=== PATIENT | female | born 1980 | race American Indian/Alaskan Native ===

== ENCOUNTER 2017-03-15 05:40 | Emergency (ER) | payer OTHER, MEDICAID ==
[2017-03-15 06:40] LABS: Basophils % (Auto) 0.1 % (0.0-1.8); Eosinophils % (Auto) 0.5 % (0.0-4.3); Hematocrit 36.4 % (30.3-42.9); Hemoglobin 11.6 gm/dl (10.1-14.3); Mean Corpuscular HGB Conc 32 % (30-34); Mean Corpuscular Volume 74 fl (79-97); Platelet Count 223 K/mm3 (140-440); Red Blood Count 4.92 M/mm3 (3.65-5.03); White Blood Count 7.9 K/mm3 (4.5-11.0)
[2017-03-15 06:43] LABS: Mean Corpuscular Hemoglobin 24 pg (28-32)
[2017-03-15 06:52] LABS: Alanine Aminotransferase 9 units/L (7-56); Albumin 3.7 g/dL (3.9-5); Alkaline Phosphatase 58 units/L (35-129); Anion Gap 16 mmol/L; Bilirubin,Total < 0.20 mg/dL (0.1-1.2); Blood Urea Nitrogen 6 mg/dL (7-17); Calcium 8.5 mg/dL (8.4-10.2); Carbon Dioxide 24 mmol/L (22-30); Chloride 100.5 mmol/L (98-107); Glucose 127 mg/dL (65-100); Potassium 3.9 mmol/L (3.6-5.0); Sodium 137 mmol/L (137-145); Total Protein 7.3 g/dL (6.3-8.2)
[2017-03-15 07:05] LABS: Bacteria,Urine 2+ /HPF (Negative); Bilirubin,Urine NEG (Negative); Blood,Urine NEG (Negative); Ketones,Urine 20 mg/dL (Negative); Leukocyte Esterase,Urine NEG (Negative); Mucus,Urine 3+ /HPF; Nitrite,Urine NEG (Negative); Urobilinogen,Urine < 2.0 mg/dL (<2.0)
--- NOTE | 2017-03-15 09:35 | Emergency Department Report ---
ED General Adult HPI - General Chief complaint: Abdominal Pain Stated complaint: DIAPHORATIC/DIZZINESS Time Seen by Provider: 03/15/17 09:34 Source: patient Mode of arrival: Wheelchair Limitations: No Limitations - History of Present Illness Initial comments: She states that over the prior 2 days she has had diarrhea for about 5 times a day. It slowed down now. She denies fever. She's had some nausea. She states that she has chronic recurrent left shoulder pain previously ascribed to fibroids. She states that she has a "fibroid larger than her " on ultrasound last week. She is high risk . She is going to my [facility]. She denies any vaginal bleeding but sometimes feels as though she is although when she checks there is no signs of spotting or discharge. This morning she felt somewhat weak and dizzy. She denied any chest discomfort. She denied any headache or any vertigo or any focal weakness or numbness. She was somewhat sweaty. She denied any acute abdominal or chest pain. She denied any chest pain or shortness of breath. She also denied leg pain or swelling. She states she works for [employer] and did recently travel (2 hour flight). -: Gradual Location: abdomen (chronic and intermittent), left Radiation: non-radiation Quality: aching Consistency: now resolved Improves with: none Worsens with: none Associated Symptoms: denies other symptoms - Related Data Previous Rx's Medication Instructions Recorded Last Taken Type HYDROcodone/APAP 5-325 [[place] 1 - 2 each PO Q6HR PRN #12 tablet 11/19/14 Unknown Rx 5/325] Promethazine [Phenergan] 25 mg PO Q6H PRN #20 tablet 11/19/14 Unknown Rx Nitrofurantoin [place]/M-Cryst 100 mg PO Q12HR #10 capsule 03/15/17 Unknown Rx [Macrobid CAP] Allergies Allergy/AdvReac Type Severity Reaction Status Date / Time codeine Allergy Hives Verified 11/19/14 14:02 ED Review of Systems ROS: Stated complaint: DIAPHORATIC/DIZZINESS Other details as noted in HPI Constitutional: denies: chills, fever Eyes: denies: eye pain, eye discharge, vision change ENT: denies: ear pain, throat pain Respiratory: denies: cough, shortness of breath, wheezing Cardiovascular: denies: chest pain, palpitations Endocrine: no symptoms reported Gastrointestinal: as per HPI, nausea, vomiting, diarrhea Genitourinary: as per HPI. denies: urgency, dysuria, discharge Musculoskeletal: denies: back pain, joint swelling, arthralgia Skin: denies: rash, lesions Neurological: denies: headache, weakness, paresthesias Psychiatric: denies: anxiety, depression Hematological/Lymphatic: denies: easy bleeding, easy bruising ED Past Medical Hx - Past Medical History Previous Medical History?: Yes Hx Hypertension: Yes (PIH) Hx Congestive Heart Failure: No Hx Diabetes: No Hx Deep Vein Thrombosis: No Hx Renal Disease: No Hx Sickle Cell Disease: No Hx Seizures: No Hx Asthma: No Hx COPD: No Hx HIV: No - Surgical History Past Surgical History?: Yes Additional Surgical History: X 3 - Social History Smoking Status: Never Smoker Substance Use Type: None - Medications Home Medications: Home Medications Medication Instructions Recorded Confirmed Last Taken Type HYDROcodone/APAP 5-325 [[place] 1 - 2 each PO Q6HR PRN #12 tablet 11/19/14 Unknown Rx 5/325] Promethazine [Phenergan] 25 mg PO Q6H PRN #20 tablet 11/19/14 Unknown Rx Nitrofurantoin Grant/M-Cryst 100 mg PO Q12HR #10 capsule 03/15/17 Unknown Rx [Macrobid CAP] ED Physical Exam - General Limitations: No Limitations General appearance: alert, in no apparent distress - Head Head exam: Present: atraumatic, normocephalic - Eye Eye exam: Present: normal appearance. Absent: scleral icterus - ENT ENT exam: Present: mucous membranes moist - Neck Neck exam: Present: normal inspection - Respiratory Respiratory exam: Present: normal lung sounds bilaterally. Absent: respiratory distress - Cardiovascular Cardiovascular Exam: Present: regular rate, normal rhythm. Absent: systolic murmur, diastolic murmur, rubs, gallop - GI/Abdominal GI/Abdominal exam: Present: soft, distended, normal bowel sounds, other (uterus does appear to be larger than gestational age). Absent: tenderness, guarding, rebound, rigid - Extremities Exam Extremities exam: Present: normal inspection - Back Exam Back exam: Present: normal inspection - Neurological Exam Neurological exam: Present: alert, oriented X3, CN II-XII intact. Absent: motor sensory deficit - Psychiatric Psychiatric exam: Present: normal affect, normal mood - Skin Skin exam: Present: warm, dry, intact, normal color. Absent: rash ED Course Vital Signs 03/15/17 03/15/17 03/15/17 06:06 07:11 07:12 Temperature 98.0 F Pulse Rate 89 82 79 Respiratory 20 14 12 Rate Blood Pressure 121/66 O2 Sat by Pulse 97 Oximetry 03/15/17 03/15/17 03/15/17 07:14 07:21 07:30 Temperature Pulse Rate 78 70 Respiratory 16 20 13 Rate Blood Pressure 131/87 122/77 O2 Sat by Pulse 97 Oximetry 03/15/17 03/15/17 03/15/17 07:45 08:00 08:15 Temperature Pulse Rate 81 71 71 Respiratory 13 13 20 Rate Blood Pressure 133/82 128/78 123/76 O2 Sat by Pulse 97 Oximetry 03/15/17 03/15/17 03/15/17 08:30 09:00 09:30 Temperature Pulse Rate 73 79 74 Respiratory 15 14 11 L Rate Blood Pressure 127/73 136/80 127/76 O2 Sat by Pulse 98 98 97 Oximetry 03/15/17 03/15/17 11:12 12:00 Temperature Pulse Rate 82 90 Respiratory 15 18 Rate Blood Pressure 154/98 158/91 O2 Sat by Pulse 97 Oximetry - Reevaluation(s) Reevaluation #1: Blood pressure is now 109/60. Patient is asymptomatic. She is appropriate for outpatient follow-up. Her exam is normal. 03/15/17 13:08 03/15/17 13:09 ED Medical Decision Making - Lab Data Result diagrams: 03/15/17 06:16 03/15/17 06:16 Laboratory Results - last 24 hr 03/15/17 03/15/17 03/15/17 06:16 06:16 06:16 WBC 7.9 RBC 4.92 Hgb 11.6 Hct 36.4 MCV 74 L MCH 24 L MCHC 32 RDW 17.0 H Plt Count 223 Lymph % (Auto) 16.4 Grant % (Auto) 3.5 Eos % (Auto) 0.5 Baso % (Auto) 0.1 Lymph # 1.3 Grant # 0.3 Eos # 0.0 Baso # 0.0 Seg Neutrophils % 79.5 H Seg Neutrophils # 6.3 Sodium 137 Potassium 3.9 Chloride 100.5 Carbon Dioxide 24 Anion Gap 16 BUN 6 L Creatinine 0.3 L Estimated GFR > 60 BUN/Creatinine Ratio 20.00 Glucose 127 H Calcium 8.5 Total Bilirubin < 0.20 AST 8 ALT 9 Alkaline Phosphatase 58 Total Protein 7.3 Albumin 3.7 L Albumin/Globulin Ratio 1.0 HCG, Quant 08911 H Urine Color Urine Turbidity Urine pH Ur Specific [place] Urine Protein Urine Glucose (UA) Urine Ketones Urine Blood Urine Nitrite Urine Bilirubin Urine Urobilinogen Ur Leukocyte Esterase Urine WBC (Auto) Urine RBC (Auto) U Epithel Cells (Auto) Urine Bacteria (Auto) Urine Mucus 03/15/17 06:35 WBC RBC Hgb Hct MCV MCH MCHC RDW Plt Count Lymph % (Auto) Grant % (Auto) Eos % (Auto) Baso % (Auto) Lymph # Grant # Eos # Baso # Seg Neutrophils % Seg Neutrophils # Sodium Potassium Chloride Carbon Dioxide Anion Gap BUN Creatinine Estimated GFR BUN/Creatinine Ratio Glucose Calcium Total Bilirubin AST ALT Alkaline Phosphatase Total Protein Albumin Albumin/Globulin Ratio HCG, Quant Urine Color Yellow Urine Turbidity Cloudy Urine pH 5.0 Ur Specific [place] 1.021 Urine Protein 100 mg/dl Urine Glucose (UA) 50 Urine Ketones 20 Urine Blood Neg Urine Nitrite Neg Urine Bilirubin Neg Urine Urobilinogen < 2.0 Ur Leukocyte Esterase Neg Urine WBC (Auto) 15.0 H Urine RBC (Auto) 7.0 U Epithel Cells (Auto) 13.0 Urine Bacteria (Auto) 2+ Urine Mucus 3+ Laboratory Results - last 24 hr 03/15/17 03/15/17 03/15/17 06:16 06:16 06:16 WBC 7.9 RBC 4.92 Hgb 11.6 Hct 36.4 MCV 74 L MCH 24 L MCHC 32 RDW 17.0 H Plt Count 223 Lymph % (Auto) 16.4 Grant % (Auto) 3.5 Eos % (Auto) 0.5 Baso % (Auto) 0.1 Lymph # 1.3 Grant # 0.3 Eos # 0.0 Baso # 0.0 Seg Neutrophils % 79.5 H Seg Neutrophils # 6.3 Sodium 137 Potassium 3.9 Chloride 100.5 Carbon Dioxide 24 Anion Gap 16 BUN 6 L Creatinine 0.3 L Estimated GFR > 60 BUN/Creatinine Ratio 20.00 Glucose 127 H Calcium 8.5 Total Bilirubin < 0.20 AST 8 ALT 9 Alkaline Phosphatase 58 Total Protein 7.3 Albumin 3.7 L Albumin/Globulin Ratio 1.0 HCG, Quant 64822 H Urine Color Urine Turbidity Urine pH Ur Specific [place] Urine Protein Urine Glucose (UA) Urine Ketones Urine Blood Urine Nitrite Urine Bilirubin Urine Urobilinogen Ur Leukocyte Esterase Urine WBC (Auto) Urine RBC (Auto) U Epithel Cells (Auto) Urine Bacteria (Auto) Urine Mucus 03/15/17 06:35 WBC RBC Hgb Hct MCV MCH MCHC RDW Plt Count Lymph % (Auto) [place] % (Auto) Eos % (Auto) Baso % (Auto) Lymph # Grant # Eos # Baso # Seg Neutrophils % Seg Neutrophils # Sodium Potassium Chloride Carbon Dioxide Anion Gap BUN Creatinine Estimated GFR BUN/Creatinine Ratio Glucose Calcium Total Bilirubin AST ALT Alkaline Phosphatase Total Protein Albumin Albumin/Globulin Ratio HCG, Quant Urine Color Yellow Urine Turbidity Cloudy Urine pH 5.0 Ur Specific [place] 1.021 Urine Protein 100 mg/dl Urine Glucose (UA) 50 Urine Ketones 20 Urine Blood Neg Urine Nitrite Neg Urine Bilirubin Neg Urine Urobilinogen < 2.0 Ur Leukocyte Esterase Neg Urine WBC (Auto) 15.0 H Urine RBC (Auto) 7.0 U Epithel Cells (Auto) 13.0 Urine Bacteria (Auto) 2+ Urine Mucus 3+ - Radiology Data Radiology results: report reviewed interpreted by me: Viable 13 week with large posterior wall fibroid Critical care attestation.: If time is entered above; I have spent that time in minutes in the direct care of this critically ill patient, excluding procedure time. ED Disposition Clinical Impression: Generalized weakness, Volume depletion, Intrauterine , UTI (urinary tract infection) Diarrhea Qualifiers: Diarrhea type: unspecified type Qualified Code(s): R19.7 - Diarrhea, unspecified Uterine fibroid Qualifiers: Uterine leiomyoma location: intramural Qualified Code(s): D25.1 - Intramural leiomyoma of uterus Disposition: DC-01 TO HOME OR SELFCARE Is pt being admited?: No Does the pt Need Aspirin: No Condition: Stable Instructions: Abdominal Pain (ED), Weakness (ED), Urinary Tract Infection in Women (ED) Additional Instructions: Follow-up on your urine culture results. Rx as directed. 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 Return any acute change or problem. Prescriptions: Nitrofurantoin [place]/M-Cryst [Macrobid CAP] 100 mg PO Q12HR #10 capsule Referrals: PRIMARY CARE, [Primary Care Provider] - 3-5 Days [facility] [Provider Group] - 2-3 Days Time of Disposition: 13:11
[2017-03-15] MEDS ORDERED: NACL 0.9% 1000 ML 1,000 ML IV ONE (09:51)
--- NOTE | 2017-03-15 11:41 | Ultrasound Report ---
ULTRASOUND OB LESS THAN 14 WEEKS ULTRASOUND OB TRANSVAGINAL History: Abdominal pain during . Findings: Transabdominal and transvaginal ultrasound imaging was performed. The uterus measures 17 x 9 x 12 cm. A 4.5 cm posterior wall fibroid is noted. An intrauterine gestational sac containing a pole is identified. Heart rate measures 161 beats per minutes. Estimated age of ultrasound is 13 weeks, 6 days. Estimated due date 09/14/17. The placenta appears to be forming anteriorly. No subplacental collection. The cervix is unremarkable and measures greater than 4 cm. The ovaries are not visualized. No adnexal cyst or mass. No pelvic fluid collection. Impression: Viable, single intrauterine as described.
[2017-03-15 13:26] VITALS: BP 112/63
== END 2017-03-15 13:26 | disposition home or self-care (01) ==
LOC: ED 05:40
DX: O23.41 Unspecified infection of urinary tract in pregnancy, first trimester (principal); O26.891 Other specified pregnancy related conditions, first trimester; E86.9 Volume depletion, unspecified; R19.7 Diarrhea, unspecified; R53.1 Weakness; O34.11 Maternal care for benign tumor of corpus uteri, first trimester; D25.9 Leiomyoma of uterus, unspecified; O16.1 Unspecified maternal hypertension, first trimester; Z3A.13 13 weeks gestation of pregnancy; Z88.6 Allergy status to analgesic agent
CPT/HCPCS: 36415; 76801; 76817; 80053; 81001; 84702; 85025; 87086; 96360; 99284; J7030